=== PATIENT | male | born 1990 | race Caucasian/White ===

== ENCOUNTER 2017-09-01 21:33 | Emergency (ER) | payer MEDICAID ==
[~2017-09-01] VITALS: Ht 188 cm; Wt 90.0 kg
[2017-09-01] MEDS ORDERED: IBUPROFEN (21:42)
[2017-09-01] MEDS ORDERED: VITAMINS (21:42)
[2017-09-01] MEDS ORDERED: ONDANSETRON ODT 4 MG ONE (21:57)
[2017-09-01] MEDS ORDERED: METHOCARBAMOL 750 MG TABLET ONE (21:57)
[2017-09-01] MEDS ORDERED: ACETAMINOPHEN 325 MG TABLET ONE (21:58)
[2017-09-01] MEDS ORDERED: ACETAMINOPHEN 500 MG TABLET PO ONE (22:00)
[2017-09-01] MEDS ORDERED: METHOCARBAMOL 750 MG TABLET PO ONE (22:00)
[2017-09-01] MEDS ORDERED: ONDANSETRON ODT 4 MG PO ONE (22:00)
[2017-09-01 22:54] VITALS: BP 111/67
== END 2017-09-01 23:00 | disposition home or self-care (01) ==
LOC: ED 22:29
DX: S09.90XA Unspecified injury of head, initial encounter (principal); R07.89 Other chest pain; G44.219 Episodic tension-type headache, not intractable; V43.52XA Car driver injured in collision with other type car in traffic accident, initial encounter; Y93.89 Activity, other specified; Y92.410 Unspecified street and highway as the place of occurrence of the external cause; Y99.8 Other external cause status
CPT/HCPCS: 71046; 99284; Q0162